=== PATIENT | male | born 2000 | race Two or more races ===

== ENCOUNTER 2020-02-06 22:15 | Emergency (ER) | payer SELFPAY ==
[~2020-02-06] VITALS: Ht 172.7 cm; Wt 99.8 kg
[2020-02-06 22:20] VITALS: BP 151/100
[2020-02-06] MEDS ORDERED: SODIUM CHLORIDE 0.9% 1,000 ML IV ONE (22:30)
[2020-02-06] MEDS ORDERED: ACETAMINOPHEN 325 MG TAB PO ONE (22:30)
[2020-02-06 22:52] LABS: Basophils # (auto) 0 10 ^3/uL (0-0.2); Basophils % (auto) 0.5 % (0.0-2.0); Eosinophils # (auto) 0 10 ^3/uL (0-0.8); Eosinophils % (auto) 0.4 % (0.0-7.0); Hematocrit 46.3 % (41.0-53.0); Hemoglobin 15.9 g/dL (13.5-17.5); Lymphocytes # (auto) 0.9 10 ^3/uL (0.4-5.4); Lymphocytes % (auto) 11.4 % (10.0-50.0); Mean Corpuscular Hemoglobin 27.9 pg (28.0-32.0); Mean Corpuscular Hgb Conc. 34.4 g/dL (32.0-36.0); Mean Corpuscular Volume 81.2 fL (80.0-100.0); Monocytes % (auto) 12.7 % (0.0-12.0); Neutrophils # (auto) 5.7 10 ^3/uL (1.6-8.6); Nucleated Red Blood Cells % 0.1 %; Platelet Count (auto) 236 10^3/uL (140-450); Red Cell Distribution Width 13.2 % (11.8-14.3); White Blood Cell 7.7 10^3/uL (4.4-10.8)
[2020-02-06 23:09] LABS: Albumin 4.4 g/dL (3.4-5.0); Calcium 9.1 mg/dL (8.5-10.1); Potassium 3.6 mmol/L (3.5-5.1)
[2020-02-06 23:12] LABS: BUN/Creatinine Ratio 9.4
[2020-02-06 23:15] LABS: Bilirubin, Total 0.6 mg/dL (0.2-1.0); Total Protein 8.6 g/dL (6.4-8.2)
[2020-02-07] MEDS ORDERED: cefTRIAXone SOD 1,000 MG VL IM ONE (00:30)
== END 2020-02-07 02:39 | disposition home or self-care (01) ==
LOC: ER 22:21
DX: J06.9 Acute upper respiratory infection, unspecified (principal); R50.9 Fever, unspecified; F17.210 Nicotine dependence, cigarettes, uncomplicated
CPT/HCPCS: 36415; 71045; 80053; 85025; 96372; 99284; J0696; J7030